=== PATIENT | male | born 1945 | race Caucasian/White ===

== ENCOUNTER → 2016-07-08 | Outpatient (CLI) | payer BC ==
[~2016-07-08] MED LIST: AMLO-114 PO; ASPCH81X PO; ATEN50TA8 PO; ATOR10TA82 PO; BUPR300T43 PO; EFF75 PO; GABA1CAP PO; HYDR25TA4 PO; INSPMPNVLG; LORA-741 PO; LOSA100T65 PO; MCRK/10 PO; MULT-845 PO; OMEG10007 PO; SILO8CAP PO; VENL150C56 PO; ZOLP10TA PO
== END | disposition home or self-care (01) ==
LOC: C.LAB1850 09:19
PROVIDERS: ATTEND Nurse Practitioner Family
DX: E11.9 Type 2 diabetes mellitus without complications (principal)

== ENCOUNTER → 2016-09-19 | Outpatient (CLI) | payer BC ==
[~2016-09-19] MED LIST changes: -ATOR10TA82 PO; +ATOR10TA88 PO
[2016-09-19 08:24] LABS: BLOOD UREA NITROGEN 15 mg/dl (7-18); BUN/CREATININE RATIO 15.3 (10-20); CALCIUM 9.4 mg/dl (8.5-10.1); CARBON DIOXIDE 29 mmol/L (21-32); CHLORIDE 104 mmol/L (98-107); CHOLESTEROL 137 mg/dl (0-200); GLUCOSE 196 mg/dl (70-99); POTASSIUM 3.7 mmol/L (3.5-5.1); SODIUM 142 mmol/L (136-145); TRIGLYCERIDES 259 mg/dl (0-150); VERY LOW DENSITY LIPOPROT CALC 52 mg/dl
[2016-09-19 08:35] LABS: CHOLESTEROL/HDL RATIO 3.3; HDL CHOLESTEROL 42 mg/dl; LDL CHOLESTEROL CALCULATED 43 mg/dl; THYROID STIMULATING HORMONE 0.662 uIu/ml (0.300-4.500)
[2016-09-19 08:57] LABS: ESTIMATED AVERAGE GLUCOSE 171 mg/dl; HA1C FLAG Normal (Normal)
== END | disposition home or self-care (01) ==
LOC: C.LABFOXMH 07:42
PROVIDERS: ATTEND Internal Medicine
DX: E11.9 Type 2 diabetes mellitus without complications (principal); E03.9 Hypothyroidism, unspecified

== ENCOUNTER → 2016-09-23 | Outpatient (CLI) | payer BC ==
--- NOTE | 2016-09-23 14:17 | DIAGNOSTIC IMAGING REPORT ---
CERVICAL SPINE 8 VIEWS HISTORY: Neuropathy LEFT ARM NUMBNESS COMPARISON: None. FINDINGS: The cervical spine is visualized from C1 through the superior endplate of T1. There is no fracture. No subluxation with the patient in flexion or extension. Moderate degenerative intervertebral this changes the lower lumbar region. Prevertebral soft tissues are unremarkable. C1-C2 complex is intact. Disc spaces are preserved. IMPRESSION: Mild to moderate degenerative disc change of the mid to lower cervical region. No subluxation with the patient in flexion or extension Electronically signed by: Refugio Banks M.D. 09/23/2016 2:15 PM Dictated Date/Time: 09/23/2016 2:09 PM
== END | disposition home or self-care (01) ==
LOC: C.RAD 13:10
PROVIDERS: ATTEND Nurse Practitioner Family
DX: R20.0 Anesthesia of skin (principal); M50.30 Other cervical disc degeneration, unspecified cervical region

== ENCOUNTER → 2017-01-28 | Outpatient (CLI) | payer BC ==
[2017-01-28 10:00] LABS: BLOOD UREA NITROGEN 16 mg/dl (7-18); CALCIUM 8.8 mg/dl (8.5-10.1); CARBON DIOXIDE 32 mmol/L (21-32); CHLORIDE 106 mmol/L (98-107); CHOLESTEROL 173 mg/dl (0-200); GLUCOSE 106 mg/dl (70-99); POTASSIUM 3.5 mmol/L (3.5-5.1); SODIUM 143 mmol/L (136-145); TRIGLYCERIDES 284 mg/dl (0-150); VERY LOW DENSITY LIPOPROT CALC 57 mg/dl
[2017-01-28 10:03] LABS: CHOLESTEROL/HDL RATIO 4.2; HDL CHOLESTEROL 41 mg/dl; LDL CHOLESTEROL CALCULATED 75 mg/dl
[2017-01-28 10:09] LABS: ESTIMATED AVERAGE GLUCOSE 163 mg/dl; HA1C FLAG Normal (Normal)
== END | disposition home or self-care (01) ==
LOC: C.LABFOXMH 08:50
PROVIDERS: ATTEND Internal Medicine
DX: E11.8 Type 2 diabetes mellitus with unspecified complications (principal)

== ENCOUNTER → 2017-04-17 | Outpatient (CLI) | payer BC | LOC: C.LABFOXMH 12:08 | PROVIDERS: ATTEND Nurse Practitioner Family | DX: R60.9 Edema, unspecified (principal) ==

== ENCOUNTER → 2017-04-18 | Outpatient (CLI) | payer BC ==
[2017-04-20 12:17] LABS: BLOOD UREA NITROGEN 15 mg/dl (7-18); BUN/CREATININE RATIO 12.9 (10-20); CALCIUM 8.9 mg/dl (8.5-10.1); CARBON DIOXIDE 28 mmol/L (21-32); CHLORIDE 107 mmol/L (98-107); CREATININE 1.15 mg/dl (0.60-1.40); GLUCOSE 126 mg/dl (70-99); POTASSIUM 3.8 mmol/L (3.5-5.1); SODIUM 142 mmol/L (136-145)
== END ==
LOC: C.LAB 10:27
PROVIDERS: ATTEND Nurse Practitioner Family
DX: R60.9 Edema, unspecified (principal)

== ENCOUNTER → 2017-05-13 | Outpatient (CLI) | payer BC ==
[~2017-05-13] MED LIST changes: +ATOR10TA82 PO; -ATOR10TA88 PO
[2017-05-13 17:09] LABS: THYROID STIMULATING HORMONE 0.958 uIu/ml (0.300-4.500)
[2017-05-14 06:50] LABS: ESTIMATED AVERAGE GLUCOSE 146 mg/dl; HA1C FLAG Normal (Normal)
== END | disposition home or self-care (01) ==
LOC: C.LAB 15:29
PROVIDERS: ATTEND Nurse Practitioner Family
DX: E03.9 Hypothyroidism, unspecified (principal); E11.9 Type 2 diabetes mellitus without complications

== ENCOUNTER → 2017-06-05 | Outpatient (CLI) | payer BC ==
[2017-06-05 08:26] LABS: ALT/SGPT 33 U/L (12-78); BLOOD UREA NITROGEN 22 mg/dl (7-18); BUN/CREATININE RATIO 21.7 (10-20); CALCIUM 8.7 mg/dl (8.5-10.1); CARBON DIOXIDE 27 mmol/L (21-32); CHLORIDE 107 mmol/L (98-107); CHOLESTEROL 147 mg/dl (0-200); CREATININE 1.03 mg/dl (0.60-1.40); GLUCOSE 133 mg/dl (70-99); SODIUM 143 mmol/L (136-145)
[2017-06-05 08:32] LABS: ALKALINE PHOSPHATASE 70 U/L (45-117); AST/SGOT 13 U/L (15-37); CHOLESTEROL/HDL RATIO 2.6; HDL CHOLESTEROL 56 mg/dl; LDL CHOLESTEROL CALCULATED 74 mg/dl; TRIGLYCERIDES 84 mg/dl (0-150); VERY LOW DENSITY LIPOPROT CALC 17 mg/dl
[2017-06-05 09:31] LABS: ESTIMATED AVERAGE GLUCOSE 154 mg/dl; HA1C FLAG Normal (Normal)
== END | disposition home or self-care (01) ==
LOC: C.LABFOXMH 08:04
PROVIDERS: ATTEND Internal Medicine Hospice and Palliative Medicine
DX: E11.9 Type 2 diabetes mellitus without complications (principal); E78.00 Pure hypercholesterolemia, unspecified

== ENCOUNTER → 2017-10-08 | Outpatient (CLI) | payer BC ==
[~2017-10-08] MED LIST changes: +GABA100C13 PO; -GABA1CAP PO
[2017-10-08 09:38] LABS: ALBUMIN 3.3 gm/dl (3.4-5.0); ALT/SGPT 36 U/L (12-78); BLOOD UREA NITROGEN 13 mg/dl (7-18); CALCIUM 8.8 mg/dl (8.5-10.1); CARBON DIOXIDE 28 mmol/L (21-32); CHOLESTEROL 166 mg/dl (0-200); CREATININE 0.99 mg/dl (0.60-1.40); GLUCOSE 109 mg/dl (70-99); POTASSIUM 3.5 mmol/L (3.5-5.1); SODIUM 140 mmol/L (136-145)
[2017-10-08 09:41] LABS: ALKALINE PHOSPHATASE 73 U/L (45-117); AST/SGOT 25 U/L (15-37); LDL CHOLESTEROL CALCULATED 73 mg/dl; TOTAL PROTEIN 6.7 gm/dl (6.4-8.2)
[2017-10-08 09:56] LABS: HEMOGLOBIN A1C 6.7 % (4.5-5.6)
== END | disposition home or self-care (01) ==
LOC: C.LABFOXMH 08:07
PROVIDERS: ATTEND Internal Medicine
DX: E11.9 Type 2 diabetes mellitus without complications (principal)

== ENCOUNTER → 2018-02-16 | Outpatient (CLI) | payer BC ==
[~2018-02-16] MED LIST changes: -AMLO-114 PO; +AMLO10TA3 PO; +GABA-1693 PO; -GABA100C13 PO
[2018-02-16 10:15] LABS: BLOOD UREA NITROGEN 16 mg/dl (7-18); CALCIUM 8.8 mg/dl (8.5-10.1); CARBON DIOXIDE 32 mmol/L (21-32); CHOLESTEROL 118 mg/dl (0-200); CREATININE 1.12 mg/dl (0.60-1.40); GLUCOSE 88 mg/dl (70-99); LDL CHOLESTEROL CALCULATED 46 mg/dl; POTASSIUM 3.5 mmol/L (3.5-5.1); SODIUM 142 mmol/L (136-145)
[2018-02-16 10:37] LABS: HEMOGLOBIN A1C 6.6 % (4.5-5.6)
== END | disposition home or self-care (01) ==
LOC: C.LABFOXMH 09:01
PROVIDERS: ATTEND Internal Medicine
DX: E11.9 Type 2 diabetes mellitus without complications (principal); E78.5 Hyperlipidemia, unspecified

== ENCOUNTER 2025-06-27 21:20 | Inpatient (IN) ==
[2025-06-27 22:57] LABS: Hematocrit (blood only) 48.5 % (42.0-52.0); Hemoglobin 16.0 g/dL (14.0-18.0); Immature Granulocytes # (auto) 0.04 K/uL (0.01-0.20); Immature Granulocytes % (auto) 0.4 %; Mean Corpuscular Hemoglobin 29.5 pg (25.0-34.0); Mean Corpuscular Volume 89.3 fL (80.0-100.0); Platelet Count 241 K/uL (130-400); RDW Standard Deviation 42.4 fL (36.4-46.3); Red Blood Count 5.43 M/uL (4.70-6.10); White Blood Count 9.67 K/ul (4.8-10.8)
[2025-06-27 23:04] LABS: Alanine Aminotransferase 29.0 U/L (7-52); Albumin Globulin Ratio 1.4 (0.9-2); Albumin Level 3.9 gm/dl (3.4-5.0); Alkaline Phosphatase 77.0 U/L (34-104); Anion Gap 10.0 (3-11); Bilirubin,Total 0.6 mg/dl (0.2-1.0); Blood Urea Nitrogen 21.0 mg/dl (6-23); Calcium 9.2 mg/dl (8.6-10.3); Carbon Dioxide 28.0 mmol/L (21-32); Chloride 101.0 mmol/L (98-107); Creatinine Clr Calc Pharmacy 65.7 ml/min; Globulin 2.8 gm/dl (2.5-4.0); Glucose 191.0 mg/dl (70-99(Fasting)); Potassium 4.2 mmol/L (3.5-5.1); Sodium 139.0 mmol/L (136-145); Total Protein 6.7 gm/dl (6.0-8.3)
[2025-06-27] MEDS: SODIUM CHLORIDE 0.9% 500 ML IV ONE (23:04)
[2025-06-27 23:25] LABS: Appearance Urine Clear (Clear); Bacteria Urine Automated None Seen (None Seen); Cast Urine Automated 0-2 /lpf (0-2); Epithelial Cell Urine Auto 0-2 /hpf (0-2); Glucose Urine UA Negative (Negative); RBC Urine Automated 0-2 /hpf (0-2); WBC Urine Automated 0-5 /hpf (0-5)
--- NOTE | 2025-06-28 00:36 | CT Scan Report ---
EXAM: CT head/brain wo con CLINICAL HISTORY: altered ms TECHNIQUE: Multiple axial images are obtained from the skull base to the vertex without contrast. CT scan was performed according to ALARA (as low as reasonably achievable). COMPARISON: 13:23:41 CASH APPLICATIONS REPRESENTATIVE. FINDINGS: There is cerebral atrophy. No evidence of space occupying lesion, hemorrhage, edema, mass effect, midline shift, extra axial collection, or hydrocephalus is noted. Basal cisterns are symmetric and normal in size and configuration. There are scattered periventricular hypodensities as can be seen with chronic microvascular ischemic changes. The schofield-white matter differentiation is preserved. Visualized paranasal sinuses and mastoid air cells are well aerated. Orbital contents are within normal limits. Bony structures are intact. IMPRESSION: 1. No evidence of acute intracranial abnormality is demonstrated. 2. Chronic microvascular ischemic changes.-stable. 3. Cerebral atrophy.-stable. Electronically signed by Ash Case 06-28-2025 12:36 AM
--- NOTE | 2025-06-28 01:40 | XRay Report ---
Exam(s): XR CXR 1 VIEW EXAM: XR Chest, 1 View CLINICAL HISTORY: Reason for exam: weakness. TECHNIQUE: Frontal view of the chest. COMPARISON: Prior chest x-ray from June 02, 2022. FINDINGS: Eventration of the right hemidiaphragm. Lungs: Moderate to heavy peribronchial thickening of the central bronchi. No consolidation. Low lung volumes limit evaluation of the lung bases. Pleural space: Unremarkable. No pneumothorax. Heart: Unremarkable. No cardiomegaly. Mediastinum: Unremarkable. Normal mediastinal contour. Bones/joints: Unremarkable. No acute fracture. IMPRESSION: Bronchitis, which may be of infectious or inflammatory etiologies. No consolidation or pleural effusion. Electronically signed by: Tessa Gannon MD 06/28/25 01:39 AM
[2025-06-28] MEDS: SODIUM CHLORIDE 0.9% 500 ML IV ONE (02:12)
--- NOTE | 2025-06-28 02:30 | History & Physical Report ---
Date of Service June 28, 2025 Assessment & Plan (1) Acute metabolic encephalopathy: (2) Dehydration, moderate: (3) Urinary incontinence: (4) Sacral neurostimulator in situ: Plan The patient is an 80-year-old male with past medical history including diabetic retinopathy, diabetes type 2, hypothyroidism, hypoglycemia unawareness, overactive bladder, urinary incontinence, diabetic peripheral neuropathy, GERD, hypothyroidism, presence of insulin pump, sleep apnea, hypertension, and history of TIA. He was brought to the emergency department by EMS from [facility] where he lives, due to noticing dizziness at 1800 hrs. this evening, and slight confusion. She reports he had a decreased appetite over the past few weeks. He does walk around with a walker. He has a sacral neurostimulator due to overactive bladder, and his reports that he gets no sleep because he has to urinate every 15 minutes. He is reluctant to drink fluids, because he has to urinate so frequently. And presents as moderately dehydrated with associated encephalopathy. #Acute metabolic encephalopathy/moderate dehydration/urinary incontinence/presence of sacral neurostimulator- No suggestion of active infection CT scan of head showed chronic small vessel disease and age-appropriate cerebral atrophy. Chest x-ray is without acute findings. Patient does not drink because he does not want to have to urinate more frequently than every 15 minutes as he does now. Patient is agreeable, after discussion, and agrees, that he should have a Pedro catheter placed for now. The catheter will allow us to more aggressively rehydrate him. He did receive normal saline 500 mL boluses x [address] on LR at 125 mL/h x 2 L His reports that he does appear somewhat improved after the 1 L total fluid that he received from the ED. He has followed with urology, most recently being seen on 05/23/2025. He has a history of TURP in 2020. Patient does have mild hypoxia, with a probable element of obesity hypoventilation syndrome. But he also has decreased inspiratory excursion due to fatigue/dehydration. #Hypertension- Showing some element of orthostasis. Overnight hold losartan, eplerenone, amlodipine Continue atenolol, being aware of patient's hypoglycemia unawareness. #Diabetes mellitus- Hold his insulin pump Typically uses 150 units of short acting insulin He has not been eating much recently in part because he cannot swallow very much because of mouth and esophagus being dry. Placed on Lantus glargine 20U SQ twice daily started in the a.m., and sliding scale insulin Pharmacy glycemic consult placed #Psychiatric- Continue bupropion, duloxetine, gabapentin #Hypothyroidism- Continue levothyroxine #Deconditioning- Patient typically walks with walker. His is his primary operations mgr Will likely need PT/OT consult when strong enough and prior to discharge He and his live at [facility] History of Present Illness Primary Care Provider: [facility] The patient is an 80-year-old male with past medical history including diabetic retinopathy, diabetes type 2, hypothyroidism, hypoglycemia unawareness, overactive bladder, urinary incontinence, diabetic peripheral neuropathy, GERD, hypothyroidism, presence of insulin pump, sleep apnea, hypertension, and history of TIA. He was brought to the emergency department by EMS from [facility] where he lives, due to noticing dizziness at 1800 hrs. this evening, and slight confusion. She reports he had a decreased appetite over the past few weeks. He does walk around with a walker. He has a sacral neurostimulator due to overactive bladder, and his reports that he gets no sleep because he has to urinate every 15 minutes. He is reluctant to drink fluids, because he has to urinate so frequently. And presents as moderately dehydrated with associated encephalopathy. Allergies Allergy/AdvReac Type Severity Reaction Status Date / Time oxycodone Allergy Intermediate Hallucinati Verified 05/23/25 08:16 ng lisinopril AdvReac Mild Cough Verified 05/23/25 08:16 Home Medications Medication Instructions Recorded Confirmed Type aspirin 81 mg tablet,delayed 81 mg PO QAM 02/07/19 05/23/25 History release atenolol 50 mg tablet 50 mg PO QAM 02/07/19 05/23/25 History losartan 100 mg tablet 100 mg PO QAM #14 tabs 02/07/19 05/23/25 History diclofenac sodium 1 % topical gel 2 gm topical QID PRN Pain 11/18/19 05/23/25 History (Voltaren) multivitamin 1 cap PO QAM 02/08/20 05/23/25 History rosuvastatin 20 mg tablet 20 mg PO QAM 07/19/20 05/23/25 History blood sugar diagnostic (Contour 11/22/20 05/23/25 History Next Test Strips) duloxetine 30 mg capsule,delayed 30 mg PO HS 05/21/21 05/23/25 History release duloxetine 60 mg capsule,delayed 60 mg PO HS 05/21/21 05/23/25 History release sprinkle eplerenone 25 mg tablet 25 mg PO QAM 08/14/22 05/23/25 History levothyroxine 88 mcg tablet 88 mcg PO QAM 08/19/22 05/23/25 History acetaminophen 500 mg capsule 1,000 mg PO QID PRN Pain 06/22/23 05/23/25 History bupropion HCl 300 mg 24 hr tablet, 300 mg PO QAM 06/22/23 05/23/25 History extended release triamcinolone acetonide 0.1 % 1 applic topical DAILY PRN Skin 06/22/23 05/23/25 History lotion Irritation cholecalciferol (vitamin D3) 50 50 mcg PO DAILY 11/16/23 05/23/25 History mcg (2,000 unit) capsule gabapentin 400 mg capsule 200 mg PO HS 05/31/24 05/23/25 History omega-3 fatty acids-fish oil 340 1 cap PO DAILY 05/31/24 05/23/25 History mg-1,000 mg capsule polyethylene glycol 3350 17 gram 17 g PO DAILY PRN Constipation 05/31/24 05/23/25 History oral powder packet (Miralax) insulin aspart U-100 100 unit/mL 150 unit (1.5 mL) continuous 10/19/24 05/23/25 Rx subcutaneous solution (Novolog subcutaneous infusion DAILY #140 mL U-100 Insulin aspart) pen needle, diabetic 32 gauge x #100 ea 02/15/25 05/23/25 Rx 5/32" semaglutide 0.25 mg or 0.5 mg (2 0.5 mg (0.736 mL) subcut Q7D #3 mL 02/20/25 05/23/25 Rx mg/3 mL) subcutaneous pen injector amlodipine 2.5 mg tablet 2.5 mg PO DAILY 02/27/25 05/23/25 History blood-glucose sensor (Dexcom G7 #3 ea 05/19/25 05/23/25 Rx Sensor device) blood-glucose,service counter cashier,cont #1 ea 05/19/25 05/23/25 Rx (Dexcom G7 Pediatric Nephrologist) Past Med/Surg History Problem List (Updated 06/28/25 @ 03:24 by Elroy Maravilla MD) Acute metabolic encephalopathy Dehydration, moderate Diabetic retinopathy associated with controlled type 2 diabetes mellitus Hypothyroidism Fatigue Hypoglycemia unawareness associated with type 2 diabetes mellitus Constipation Abnormal abdominal CT scan Diarrhea Overactive bladder Adult situational stress disorder Degenerative joint disease of left hip Urinary incontinence History of colon polyps Hematuria Encounter for pre-operative examination Controlled type 2 diabetes mellitus with neurologic complication, with long-term current use of insulin (Chronic) Diabetic autonomic neuropathy Diabetic peripheral neuropathy Dyslipidemia Encounter for prostate cancer screening Enlarged prostate with lower urinary tract symptoms (LUTS) Esophageal reflux Hearing loss Bilateral hearing aids Hypothyroidism Impaired sensation Insulin pump titration Irritable bowel syndrome Joint pain, elbow Male erectile disorder of organic origin Obesity (BMI 35.0-39.9 without comorbidity) Pain in joint of left shoulder Peripheral neuropathy Skin abscess Sleep apnea Tinnitus Type 2 diabetes mellitus with hypoglycemia unawareness Dizziness Diplopia Hypertension Diabetes Medical History (Updated 06/28/25 @ 03:24 by Elroy Maravilla MD) Hx of colonic polyps Hearing loss bilat. hearing aids Diarrhea finishing flagyl tx 06/22/23, tested 3x c.diff and tests were negative resolved Difficult intubation reported by pt at previous PAT appt, no additional records/details available Sacral neurostimulator in situ trial placed 02/04/23; permanent implant placed 04/2023; advised to bring remote dos Hx of melanoma of skin under right earlobe History of COVID-19 03/06/22, test at [facility] due to tracing, not hosp; was given paxlo vid>resolved. Peripheral neuropathy Diabetes mellitus, type 2 insulin pump History of anesthesia reaction wakes up during anesthesia "only happened once" Urinary stress incontinence, male CKD (chronic kidney disease) stage 3, GFR 30-59 ml/min pt unsure about this? Hypertension Hyperlipidemia TIA (transient ischemic attack) 2016 > some reading difficulty IBS (irritable bowel syndrome) Combination of diarrhea and constipation Insulin pump in place Has continuous glucose monitor in place on lower abdomen as well Spinal stenosis Hypothyroid Sleep apnea CPAP BPH without urinary obstruction hx TURP Depression Surgical History Hx of eye surgery "holes in retinas repaired, has troubles w/reading" Hx of melanoma excision below rt earlobe Hx of transurethral resection of prostate History of repair of rotator cuff rt/lt History of tonsillectomy and adenoidectomy History of colonoscopy (2023) History of cholecystectomy History of knee replacement rt/lt Family History Father Myocardial infarction Hypertension Grandmother (Maternal) Cancer Mother Hypertension Family/Other Family history of diabetes mellitus Other Diabetes History of nephrolithiasis No family history of adverse response to anesthesia Social History Smoking Status: Never smoker Tobacco Type: Cigarettes Second Hand Exposure: No; Do You Dip or Chew Tobacco: No (quit 13 years ago); Hx Alcohol Use: No Hx Substance Use: Yes Last Used Substance Other:: tried medical marijuana years ago, once Substance Use Type Other:: "tried a couple of years ago" Preferred Language: Yakut Communication Ability: Effective Rn Heart Required: No Beliefs That Will Affect Care: None Current Living Situation: Spouse Current Living Situation Comment: lives in [facility] Feels Safe at Home: Yes Assistive Devices: Cane, CPAP, Denture - Upper, Glasses and Hearing Aid - Bilateral Review of Systems Review of Systems: The patient denies chest pain, palpitations, shortness of breath, dyspnea on exertion, cough, lower extremity swelling, sore throat, fevers, chills, sweats, nausea, vomiting, diarrhea , constipation, abdominal pain, pelvic pain, blood in urine or stool, dysuria, urinary frequency or urgency, loss of consciousness, rash, abnormal bruising or bleeding, focal weakness, numbness or tingling in arms or legs, neck pain, or night sweats. The review of systems is otherwise negative other than for that already noted above, and at least 10 systems have been reviewed. Physical Exam Physical Exam: The patient is awake, alert and oriented 3, well developed and well nourished, normocephalic and atraumatic, lying in bed and in no acute distress. HEENT--PERRL, EOMI, mucous membranes and oropharynx moderately dry. Neck--supple. No JVD. No bruits. Thyroid normal, trachea midline, no adenopathy. Heart--normal S1 and S2. No murmurs, rubs or gallops. Lungs--clear bilaterally, no respiratory distress, no accessory muscle use. Abdomen--normal bowel sounds and soft. Nontender. Nondistended. Obese Extremities--1+ bilateral pretibial pitting edema. Dermatologic--skin is dry Neurologic--cranial nerves II through XII grossly intact. Rheumatologic--limited exam Psychiatric--normal affect. Results & Data Results & Data Vital Signs (Past 12 Hours) Vital Signs Temp Pulse Pulse Resp BP BP Pulse Ox 06/28/25 01:49 112 H 06/28/25 00:38 113 H 18 134/83 90 06/27/25 23:11 112 H 18 121/77 93 06/27/25 21:48 36.5 C 111 H 18 156/88 H 93 06/27/25 21:46 114 H 06/27/25 21:41 92 O2 Del Method 06/28/25 01:49 06/28/25 00:38 Room Air 06/27/25 23:11 Room Air 06/27/25 21:48 Room Air 06/27/25 21:46 06/27/25 21:41 Room Air Laboratory Results Laboratory Results WBC 9.67 K/ul (4.8-10.8) 06/27/25 21: RBC 5.43 M/uL (4.70-6.10) 06/27/25 21: Hgb 16.0 g/dL (14.0-18.0) 06/27/25 21: Hct 48.5 % (42.0-52.0) 06/27/25 21: MCV 89.3 fL (80.0-100.0) 06/27/25: MCH 29.5 pg (25.0-34.0) 06/27/25 21: MCHC 33.0 g/dL (32.0-36.0) 06/27/25 21: RDW Std Deviation 42.4 fL (36.4-46.3) 06/27/25: RDW Coeff of Lexie 13.0 % (11.5-14.5) 06/27/25 21: Plt Count 241 K/uL (130-400) 06/27/25 21: MPV 10.5 fL (9.4-12.4) 06/27/25: Immature Gran % (Auto) 0.4 % 06/27/25: Neut % (Auto) 86.0 % 06/27/25 21: Lymph % (Auto) 3.9 % 06/27/25 21: Wharton % (Auto) 7.4 % 06/27/25 21: Eos % (Auto) 1.8 % 06/27/25 21: Baso % (Auto) 0.5 % 06/27/25 21: Neut # (Auto) 8.31 K/uL (1.40-6.50) H 06/27/25 21: Lymph # (Auto) 0.38 K/uL (1.20-3.40) L 06/27/25 21: Wharton # (Auto) 0.72 K/uL (0.11-0.59) H 06/27/25 21: Eos # (Auto) 0.17 K/uL (0.00-0.50) 06/27/25 21: Baso # (Auto) 0.05 K/uL (0.00-0.20) 06/27/25 21: Immature Gran # (Auto) 0.04 K/uL (0.01-0.20) 06/27/25 21: Sodium 139 mmol/L (136-145) 06/27/25 21: Potassium 4.2 mmol/L (3.5-5.1) 06/27/25 21: Chloride 101 mmol/L (98-107) 06/27/25 21: Carbon Dioxide 28 mmol/L (21-32) 06/27/25 21: Anion Gap 10 (3-11) 06/27/25 21: BUN 21 mg/dl (6-23) 06/27/25 21: Creatinine 1.19 mg/dl (0.6-1.4) 06/27/25 21: Est Cr Clr Drug Dosing 65.7 ml/min 06/27/25 21: eGFR 61.75 06/27/25 21: BUN/Creatinine Ratio 17.6 (10-20) 06/27/25 21: Glucose 191 mg/dl (70-99(Fasting)) H 06/27/25 21: Calcium 9.2 mg/dl (8.6-10.3) 06/27/25 21: Total Bilirubin 0.6 mg/dl (0.2-1.0) 06/27/25 21: AST 25 U/L (13-39) 06/27/25 21: ALT 29 U/L (7-52) 06/27/25 21: Alkaline Phosphatase 77 U/L (34-104) 06/27/25 21:23 Troponin I High Sens 9.7 pg/ml (0-20) 06/28/25 00:28 Total Protein 6.7 gm/dl (6.0-8.3) 06/27/25 21: Albumin 3.9 gm/dl (3.4-5.0) 06/27/25 21: Globulin 2.8 gm/dl (2.5-4.0) 06/27/25 21: Albumin/Globulin Ratio 1.4 (0.9-2) 06/27/25 21:23 Urine Color Yellow 06/27/25 22:42 Urine Appearance Clear (Clear) 06/27/25 22:42 Urine pH 8.0 (4.5-7.5) H 06/27/25 22:42 Ur Specific [place] 1.022 (1.000-1.030) 06/27/25 22:42 Urine Protein 2+ (Negative) H 06/27/25 22:42 Urine Glucose (UA) Negative (Negative) 06/27/25 22:42 Urine Ketones Trace (Negative) H 06/27/25 22:42 Urine Blood Negative (Negative) 06/27/25 22:42 Urine Nitrite Negative (Negative) 06/27/25 22:42 Urine Bilirubin Negative (Negative) 06/27/25 22:42 Urine Urobilinogen Negative (Negative) 06/27/25 22:42 Ur Leukocyte Esterase Negative (Negative) 06/27/25 22:42 Urine WBC (Auto) 0-5 /hpf (0-5) 06/27/25 22:42 Urine RBC (Auto) 0-2 /hpf (0-2) 06/27/25 22:42 U Hyaline Cast (Auto) 0-2 /lpf (0-2) 06/27/25 22:42 U Epithel Cells (Auto) 0-2 /hpf (0-2) 06/27/25 22:42 Urine Bacteria (Auto) None Seen (None Seen) 06/27/25 22:42 Urine Comment 06/27/25 22:42 Impressions Chest X-Ray 06/27/25 22:54 Exam(s): XR CXR 1 VIEW EXAM: XR Chest, 1 View CLINICAL HISTORY: Reason for exam: weakness. TECHNIQUE: Frontal view of the chest. COMPARISON: Prior chest x-ray from June 02, 2022. FINDINGS: Eventration of the right hemidiaphragm. Lungs: Moderate to heavy peribronchial thickening of the central bronchi. No consolidation. Low lung volumes limit evaluation of the lung bases. Pleural space: Unremarkable. No pneumothorax. Heart: Unremarkable. No cardiomegaly. Mediastinum: Unremarkable. Normal mediastinal contour. Bones/joints: Unremarkable. No acute fracture. IMPRESSION: Bronchitis, which may be of infectious or inflammatory etiologies. No consolidation or pleural effusion. Electronically signed by: Tessa Gannon MD 06/28/25 01:[address] 06/27/25 23:39 EXAM: CT head/brain wo con CLINICAL HISTORY: altered ms TECHNIQUE: Multiple axial images are obtained from the skull base to the vertex without contrast. CT scan was performed according to ALARA (as low as reasonably achievable). COMPARISON: 13:23:41 SOCIAL SERVICES COORDINATOR. FINDINGS: There is cerebral atrophy. No evidence of space occupying lesion, hemorrhage, edema, mass effect, midline shift, extra axial collection, or hydrocephalus is noted. Basal cisterns are symmetric and normal in size and configuration. There are scattered periventricular hypodensities as can be seen with chronic microvascular ischemic changes. The schofield-white matter differentiation is preserved. Visualized paranasal sinuses and mastoid air cells are well aerated. Orbital contents are within normal limits. Bony structures are intact. IMPRESSION: 1. No evidence of acute intracranial abnormality is demonstrated. 2. Chronic microvascular ischemic changes.-stable. 3. Cerebral atrophy.-stable. Electronically signed by Ash Case 06-28-2025 12:36 AM Code Status & VTE Plan Code Status Full code VTE Prophylaxis Plan VTE Prophylaxis will be ordered: Yes PG Care Time/CCT Total # of Minutes Spent Total Time Spent with Patient: Total time spent is greater than 50% in coordination of care (as documented) at patient's floor/unit and/or counseling patient: Coding Level of Care Code 32058 INT INP/OBS CARE 3/75MIN Diagnoses Acute metabolic encephalopathy G93.41 Dehydration, moderate E86.0 Urinary incontinence R32 Sacral neurostimulator in situ Z96.82
[2025-06-28] MEDS: LACTATED RINGER'S 1,000 ML IV SCH (03:06)
[2025-06-28] MEDS ORDERED: GLUCOSE 40% GEL 15 GM TUBE PO PRN (03:32)
[2025-06-28] MEDS ORDERED: DEXTROSE 50% 50 ML SYRINGE IV PRN (03:32)
[2025-06-28] MEDS ORDERED: GLUCOSE 10 TAB/TUBE PO PRN (03:32)
[2025-06-28] MEDS ORDERED: ONDANSETRON INJ 2 MG/ML 2 ML VIAL IV PRN (03:32)
[2025-06-28] MEDS ORDERED: PHARMACY GLYCEMIC MGMT CONSULT PRN (03:32)
[2025-06-28] MEDS ORDERED: GLUCAGON FOR INJ 1 MG VIAL SQ PRN (03:32)
[2025-06-28] MEDS ORDERED: CARBOHYDRATES FOR HYPOGLYCEMIA PO PRN (03:32)
[2025-06-28] MEDS: ACETAMINOPHEN 325 MG TAB PO PRN (04:44)
[2025-06-28] MEDS: INSULIN ASPART PER UNIT CHARGE SC ONE (04:49)
[2025-06-28] MEDS: LANTUS PER UNIT CHARGE SC ONE (04:56)
[2025-06-28 08:01] LABS: Hemoglobin A1C 7.0 % (4.5-5.6)
--- NOTE | 2025-06-28 08:15 | Emergency Department Note ---
Impression & Plan Dehydration, Acute alteration in mental status, Ambulatory dysfunction admit to the [facility] ED Provider Note NAME: NAVJOT LAGUNA AGE: 80 SEX: Male INFORMANT: Patient ED PROVIDER(S): Isamar Gillis DO CHIEF COMPLAINT: Confusion, dizziness and decreased appetite PLAN: Disposition: admit to the [facility] MEDICAL DECISION MAKING: This is an 80-year-old male patient from [facility] with a history of type 2 diabetes, hyperlipidemia,and previous TIA who presents to the emergency department with his with significant increased confusion to the point that he appeared to be hallucinating and talking to people that were not there tonight. His also states that he was unable to ambulate on his own which is not typical for him. She describes extreme weakness since 6 PM this evening. also describes an overall decline over the past 4 to 6 weeks of decreased appetite and generalized weakness for which she has been to 5 doctors as she describes it with no true answers as to the cause of the symptoms. The patient describes urinary frequency but no true diagnosis of UTI. On physical exam today, the patient appears significantly dehydrated with dry mucous membranes, tachycardia and poor skin turgor. Laboratory studies reveal no leukocytosis or anemia. Glucose was slightly elevated. Troponin was normal. Urinalysis revealed trace ketones and 2+ protein. However there were no signs of infection. Chest x-ray was unremarkable. The patient was bolused with IV normal saline solution. This did bring his heart rate down below 100. Patient has CT scan of the brain which was unremarkable. The patient remained quite weak and was unable to get up and ambulate on his own. He also remained confused and seemed to be hallucinating as he was talking to the TV in his room which was turned off. The case was discussed with the [facility] and they will evaluate for further inpatient care and evaluation. Care/management discussed with: The patient's is at the bedside and the [facility] Triage Nursing notes: reviewed and agree with them. Vital Signs: reviewed and remarkable for tachycardia Additional History obtained from: Patient's who is at the bedside Chronic Medical/Social Conditions affecting care: Diabetes, hyperlipidemia, the patient does admit to being sad and not having an appetite. Prior/ Outside/ External records reviewed: I did review outside records from endocrinology. Differential Diagnosis: UTI, dehydration, electrolyte abnormality, hyperglycemia, intracranial process Diagnostics, independently interpreted by me: Cardiac Monitoring: Sinus tachycardia at a rate of 107 Imaging studies: Portable chest x-ray: No acute pulmonary infiltrates or consolidation as per my independent interpretation CT scan of the brain: As per [facility] HPI: 80 year old Male arrives for evaluation of dizziness and confusion. He has significant increased confusion to the point that he appeared to be hallucinating and talking to people that were not there tonight. His also states that he was unable to ambulate on his own which is not typical for him. . PAST MEDICAL HISTORY: See Below, PAST SURGICAL HISTORY: See Below, SOCIAL HISTORY: See Below, HOME MEDICATIONS: See list ALLERGIES: See list VITALS: See Below PHYSICAL EXAMINATION: HEENT: Head - normocephalic and atraumatic. Pupils are equal, round, and reactive to light. Extraocular eye muscles are intact and sclera are anicteric. Nose -dry nasal mucosa without discharge. Mouth -dry buccal mucosa. Oropharynx is nonerythematous and there is no tonsillar exudate or edema noted. Neck: Supple; no JVD or cervical lymphadenopathy Heart: Tachycardic rate and regular rhythm. There is a normal S1 and S2 with no murmurs, clicks, or gallops appreciated. Lungs: Clear to auscultation bilaterally with no wheezes, rales, or rhonchi. Abdomen: Soft, completely nontender, nondistended, with good bowel sounds. There are no palpable pulsatile masses or hepatosplenomegaly. There is no guarding, rigidity, or rebound noted. Extremities: No evidence of cyanosis, clubbing, or edema. There are easily palpable peripheral pulses. Neuro:The patient is awake and alert, oriented to person and place. Muscle strength is 5/5 in all 4 extremities. The patient has equal adjunct faculty for medical terminology strength and equal pedal push and pull. There are no cerebellar signs. Skin: Extremely dry with poor turgor. There were no rashes. Emergency Department treatment: environmental monitoring technician, IV normal saline bolus Emergency department course: The patient was evaluated in room B-6. A complete history and physical was performed. IV lock was initiated and labs were drawn as above. Order was placed for continuous cardiac monitoring. The patient was in a sinus tachycardia at a rate of 107. Portable chest x-ray was performed. Patient went for CT scan of the brain. Patient was bolused with IV normal saline solution. Urine specimen was obtained. Patient was wanting to be discharged back to [facility] but continued to hallucinate and talk to people that were not in the room and talk to the TV and question why it had numbers all over it was actually turned off. I reviewed some of the results with the patient and explained my concerns to him and his . He was willing to stay. I discussed the case with the [facility] Hospitalist and they will evaluate the patient for further inpatient care. Past Med/Surg History Problem List (Updated 06/28/25 @ 08:47 by Isamar Gillis DO) Ambulatory dysfunction (Acute) Acute alteration in mental status (Acute) Dehydration (Acute) Acute metabolic encephalopathy Dehydration, moderate Diabetic retinopathy associated with controlled type 2 diabetes mellitus Hypothyroidism Fatigue Hypoglycemia unawareness associated with type 2 diabetes mellitus Constipation Abnormal abdominal CT scan Diarrhea Overactive bladder Adult situational stress disorder Degenerative joint disease of left hip Urinary incontinence History of colon polyps Hematuria Encounter for pre-operative examination Controlled type 2 diabetes mellitus with neurologic complication, with long-term current use of insulin (Chronic) Diabetic autonomic neuropathy Diabetic peripheral neuropathy Dyslipidemia Encounter for prostate cancer screening Enlarged prostate with lower urinary tract symptoms (LUTS) Esophageal reflux Hearing loss Bilateral hearing aids Hypothyroidism Impaired sensation Insulin pump titration Irritable bowel syndrome Joint pain, elbow Male erectile disorder of organic origin Obesity (BMI 35.0-39.9 without comorbidity) Pain in joint of left shoulder Peripheral neuropathy Skin abscess Sleep apnea Tinnitus Type 2 diabetes mellitus with hypoglycemia unawareness Dizziness Diplopia Hypertension Diabetes Medical History (Updated 06/28/25 @ 08:47 by Isamar Gillis DO) Hx of colonic polyps Hearing loss bilat. hearing aids Diarrhea finishing flagyl tx 06/22/23, tested 3x c.diff and tests were negative resolved Difficult intubation reported by pt at previous PAT appt, no additional records/details available Sacral neurostimulator in situ trial placed 02/04/23; permanent implant placed 04/2023; advised to bring remote dos Hx of melanoma of skin under right earlobe History of COVID-19 03/06/22, test at [facility] due to tracing, not hosp; was given paxlovid>resolved. Peripheral neuropathy Diabetes mellitus, type 2 insulin pump History of anesthesia reaction wakes up during anesthesia "only happened once" Urinary stress incontinence, male CKD (chronic kidney disease) stage 3, GFR 30-59 ml/min pt unsure about this? Hypertension Hyperlipidemia TIA (transient ischemic attack) 2016 > some reading difficulty IBS (irritable bowel syndrome) Combination of diarrhea and constipation Insulin pump in place Has continuous glucose monitor in place on lower abdomen as well Spinal stenosis Hypothyroid Sleep apnea CPAP BPH without urinary obstruction hx TURP Depression Surgical History Hx of eye surgery "holes in retinas repaired, has troubles w/reading" Hx of melanoma excision below rt earlobe Hx of transurethral resection of prostate History of repair of rotator cuff rt/lt History of tonsillectomy and adenoidectomy History of colonoscopy (2023) History of cholecystectomy History of knee replacement rt/lt Family History Father Myocardial infarction Hypertension Grandmother (Maternal) Cancer Mother Hypertension Family/Other Family history of diabetes mellitus Other Diabetes History of nephrolithiasis No family history of adverse response to anesthesia Social History Smoking Status: Never smoker Tobacco Type: Cigarettes Second Hand Exposure: No; Do You Dip or Chew Tobacco: No (quit 13 years ago); Hx Alcohol Use: No Hx Substance Use: Yes Last Used Substance Other:: tried medical marijuana years ago, once Substance Use Type Other:: "tried a couple of years ago" Preferred Language: Cymraes Communication Ability: Effective Patient Liaison Required: No Beliefs That Will Affect Care: None Current Living Situation: Spouse Current Living Situation Comment: lives in [facility] Feels Safe at Home: Yes Assistive Devices: Cane, CPAP, Denture - Upper, Glasses and Hearing Aid - Bilateral Allergies Allergies Allergy/AdvReac Type Severity Reaction Status Date / Time oxycodone Allergy Intermediate Hallucinati Verified 05/23/25 08:16 ng lisinopril AdvReac Mild Cough Verified 05/23/25 08:16 Home Meds Home Medications Medication Instructions Recorded Confirmed aspirin 81 mg tablet,delayed 81 mg PO QAM 02/07/19 05/23/25 release atenolol 50 mg tablet 50 mg PO QAM 02/07/19 05/23/25 losartan 100 mg tablet 100 mg PO QAM #14 tabs 02/07/19 05/23/25 diclofenac sodium 1 % topical gel 2 gm topical QID PRN Pain 11/18/19 05/23/25 (Voltaren) multivitamin 1 cap PO QAM 02/08/20 05/23/25 rosuvastatin 20 mg tablet 20 mg PO QAM 07/19/20 05/23/25 blood sugar diagnostic (Contour 11/22/20 05/23/25 Next Test Strips) duloxetine 30 mg capsule,delayed 30 mg PO HS 05/21/21 05/23/25 release duloxetine 60 mg capsule,delayed 60 mg PO HS 05/21/21 05/23/25 release sprinkle eplerenone 25 mg tablet 25 mg PO QAM 08/14/22 05/23/25 levothyroxine 88 mcg tablet 88 mcg PO QAM 08/19/22 05/23/25 acetaminophen 500 mg capsule 1,000 mg PO QID PRN Pain 06/22/23 05/23/25 bupropion HCl 300 mg 24 hr tablet, 300 mg PO QAM 06/22/23 05/23/25 extended release triamcinolone acetonide 0.1 % 1 applic topical DAILY PRN Skin 06/22/23 05/23/25 lotion Irritation cholecalciferol (vitamin D3) 50 50 mcg PO DAILY 11/16/23 05/23/25 mcg (2,000 unit) capsule gabapentin 400 mg capsule 200 mg PO HS 05/31/24 05/23/25 omega-3 fatty acids-fish oil 340 1 cap PO DAILY 05/31/24 05/23/25 mg-1,000 mg capsule polyethylene glycol 3350 17 gram 17 g PO DAILY PRN Constipation 05/31/24 05/23/25 oral powder packet (Miralax) amlodipine 2.5 mg tablet 2.5 mg PO DAILY 02/27/25 05/23/25 Previous Rx's Medication Instructions Recorded insulin aspart U-100 100 unit/mL 150 unit (1.5 mL) continuous 10/19/24 subcutaneous solution (Novolog subcutaneous infusion DAILY #140 mL U-100 Insulin aspart) pen needle, diabetic 32 gauge x #100 ea 02/15/25" semaglutide 0.25 mg or 0.5 mg (2 0.5 mg (0.736 mL) subcut Q7D #3 mL 02/20/25 mg/3 mL) subcutaneous pen injector blood-glucose sensor (Dexcom G7 #3 ea 05/19/25 Sensor device) blood-glucose,pilot submersible,cont #1 ea 05/19/25 (Dexcom G7 Panel Fitter) Results & Data (ED) Vital Signs Vital Signs - 24 hr 06/27/25 21:41 06/27/25 21:46 06/27/25 21:48 Temperature 36.5 C Temperature Source Oral Pulse Rate 114 H 111 H Pulse Rate [Apical] Pulse Rhythm Regular Pulse Rhythm [Apical] Pulse Strength Normal Pulse Strength [Apical] Respiratory Rate 18 Respiratory Effort / Characteristics Non-Labored Spontaneous Respiratory Depth Normal Respiratory Pattern Regular Blood Pressure 156/88 H Blood Pressure [Left Arm] Blood Pressure Mean 110 Blood Pressure Mean [Left Arm] Blood Pressure Position Lying Pulse Oximetry 92 93 Oxygen Delivery Method Room Air Room Air Sepsis Recent Fever Within 48 Hours No Sepsis New/Unexplained Change in Mental Status Yes Sepsis Action Taken by Nursing No Action Required 06/27/25 23:11 06/28/25 00:38 06/28/25 01:49 Temperature Temperature Source Pulse Rate 112 H Pulse Rate [Apical] 112 H 113 H Pulse Rhythm Pulse Rhythm [Apical] Regular Regular Pulse Strength Pulse Strength [Apical] Normal Normal Respiratory Rate 18 18 Respiratory Effort / Characteristics Non-Labored Spontaneous Non-Labored Respiratory Depth Normal Normal Respiratory Pattern Regular Regular Blood Pressure Blood Pressure [Left Arm] 121/77 134/83 Blood Pressure Mean Blood Pressure Mean [Left Arm] 91 100 Blood Pressure Position Pulse Oximetry 93 90 Oxygen Delivery Method Room Air Room Air Sepsis Recent Fever Within 48 Hours Sepsis New/Unexplained Change in Mental Status Sepsis Action Taken by Nursing 06/28/25 02:00 Temperature Temperature Source Pulse Rate Pulse Rate [Apical] 112 H Pulse Rhythm Pulse Rhythm [Apical] Regular Pulse Strength Pulse Strength [Apical] Normal Respiratory Rate 20 Respiratory Effort / Characteristics Non-Labored Spontaneous Respiratory Depth Normal Respiratory Pattern Regular Blood Pressure Blood Pressure [Left Arm] 169/90 H Blood Pressure Mean Blood Pressure Mean [Left Arm] 116 Blood Pressure Position Pulse Oximetry 92 Oxygen Delivery Method Room Air Sepsis Recent Fever Within 48 Hours Sepsis New/Unexplained Change in Mental Status Sepsis Action Taken by Nursing Laboratory Data 06/27/25 21:23 06/27/25 21:23 Lab Results 06/27/25 06/27/25 06/28/25 Range/Units 21:23 22:42 00:28 WBC 9.67 (4.8-10.8) K/ul RBC 5.43 (4.70-6.10) M/uL Hgb 16.0 (14.0-18.0) g/dL Hct 48.5 (42.0-52.0) % MCV 89.3 (80.0-100.0) fL MCH 29.5 (25.0-34.0) pg MCHC 33.0 (32.0-36.0) g/dL RDW Std Deviation 42.4 (36.4-46.3) fL RDW Coeff of Lexie 13.0 (11.5-14.5) % Plt Count 241 (130-400) K/uL MPV 10.5 (9.4-12.4) fL Immature Gran % (Auto) 0.4 % Neut % (Auto) 86.0 % Lymph % (Auto) 3.9 % Russell % (Auto) 7.4 % Eos % (Auto) 1.8 % Baso % (Auto) 0.5 % Neut # (Auto) 8.31 H (1.40-6.50) K/uL Lymph # (Auto) 0.38 L (1.20-3.40) K/uL Russell # (Auto) 0.72 H (0.11-0.59) K/uL Eos # (Auto) 0.17 (0.00-0.50) K/uL Baso # (Auto) 0.05 (0.00-0.20) K/uL Immature Gran # (Auto) 0.04 (0.01-0.20) K/uL Sodium 139 (136-145) mmol/L Potassium 4.2 (3.5-5.1) mmol/L Chloride 101 (98-107) mmol/L Carbon Dioxide 28 (21-32) mmol/L Anion Gap 10 (3-11) BUN 21 (6-23) mg/dl Creatinine 1.19 (0.6-1.4) mg/dl Est Cr Clr Drug Dosing 65.7 ml/min eGFR 61.75 BUN/Creatinine Ratio 17.6 (10-20) Glucose 191 H (70-99(Fasting)) mg/dl Calcium 9.2 (8.6-10.3) mg/dl Total Bilirubin 0.6 (0.2-1.0) mg/dl AST 25 (13-39) U/L ALT 29 (7-52) U/L Alkaline Phosphatase 77 (34-104) U/L Troponin I High Sens 9.7 (0-20) pg/ml Total Protein 6.7 (6.0-8.3) gm/dl Albumin 3.9 (3.4-5.0) gm/dl Globulin 2.8 (2.5-4.0) gm/dl Albumin/Globulin Ratio 1.4 (0.9-2) Urine Color Yellow Urine Appearance Clear (Clear) Urine pH 8.0 H (4.5-7.5) Ur Specific Homer 1.022 (1.000-1.030) Urine Protein 2+ H (Negative) Urine Glucose (UA) Negative (Negative) Urine Ketones Trace H (Negative) Urine Blood Negative (Negative) Urine Nitrite Negative (Negative) Urine Bilirubin Negative (Negative) Urine Urobilinogen Negative (Negative) Ur Leukocyte Esterase Negative (Negative) Urine WBC (Auto) 0-5 (0-5) /hpf Urine RBC (Auto) 0-2 (0-2) /hpf U Hyaline Cast (Auto) 0-2 (0-2) /lpf U Epithel Cells (Auto) 0-2 (0-2) /hpf Urine Bacteria (Auto) None Seen (None Seen) Urine Comment Administered Medications Acetaminophen (Acetaminophen 325 Mg Tab) 650 mg PO Q4H PRN PRN Reason: Pain or Fever Stop: 07/28/25 03:31 Last Admin: 06/28/25 04:44 Dose: 650 mg Documented By: NOLBETRO Lactated Ringer's (Lr) 1,000 mls @ 125 mls/hr IV .Q8H TYLER Stop: 06/28/25 18:19 Last Admin: 06/28/25 03:06 Dose: 125 mls/hr Documented By: abl Discontinued Medications Sodium Chloride (Nss) 500 mls @ 999 mls/hr IV .Q31M ONE Stop: 06/27/25 23:26 Last Infusion: 06/28/25 00:32 Dose: Infused Documented By: abl Admin: 06/27/25 23:04 Dose: 999 mls/hr Documented By: abl Sodium Chloride (Nss) 500 mls @ 999 mls/hr IV .Q31M ONE Stop: 06/28/25 01:52 Last Infusion: 06/28/25 03:06 Dose: Infused Documented By: juan Admin: 06/28/25 02:12 Dose: 999 mls/hr Documented By: juan Insulin Aspart (Insulin Aspart Per Unit Charge) 0 units SC NOW ONE Stop: 06/28/25 04:01 Last Admin: 06/28/25 04:49 Dose: Not Given Documented By: NOLBERTO Insulin Glargine (Lantus Per Unit Charge) 20 units SC NOW ONE Stop: 06/28/25 04:01 Last Admin: 06/28/25 04:56 Dose: 20 units Documented By: NOLBERTO Co-signed By: WIN Imaging Data Radiologist's Impression: Chest X-Ray 06/27/25 22:54 Exam(s): XR CXR 1 VIEW EXAM: XR Chest, 1 View CLINICAL HISTORY: Reason for exam: weakness. TECHNIQUE: Frontal view of the chest. COMPARISON: Prior chest x-ray from June 02, 2022. FINDINGS: Eventration of the right hemidiaphragm. Lungs: Moderate to heavy peribronchial thickening of the central bronchi. No consolidation. Low lung volumes limit evaluation of the lung bases. Pleural space: Unremarkable. No pneumothorax. Heart: Unremarkable. No cardiomegaly. Mediastinum: Unremarkable. Normal mediastinal contour. Bones/joints: Unremarkable. No acute fracture. IMPRESSION: Bronchitis, which may be of infectious or inflammatory etiologies. No consolidation or pleural effusion. Electronically signed by: Tessa Gannon MD 06/28/25 01:[address] 06/27/25 23:39 EXAM: CT head/brain wo con CLINICAL HISTORY: altered ms TECHNIQUE: Multiple axial images are obtained from the skull base to the vertex without contrast. CT scan was performed according to ALARA (as low as reasonably achievable). 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 FINDINGS: There is cerebral atrophy. No evidence of space occupying lesion, hemorrhage, edema, mass effect, midline shift, extra axial collection, or hydrocephalus is noted. Basal cisterns are symmetric and normal in size and configuration. There are scattered periventricular hypodensities as can be seen with chronic microvascular ischemic changes. The schofield-white matter differentiation is preserved. Visualized paranasal sinuses and mastoid air cells are well aerated. Orbital contents are within normal limits. Bony structures are intact. IMPRESSION: 1. No evidence of acute intracranial abnormality is demonstrated. 2. Chronic microvascular ischemic changes.-stable. 3. Cerebral atrophy.-stable. Electronically signed by Ash Case 06-28-2025 12:36 AM Discharge Plan Visit Data Chief Complaint: Dizziness Stated Complaint: DECREASED APPETITE, DIZZINESS ED Provider: Isamar Gillis Discharge Problem: Dehydration, Acute alteration in mental status, Ambulatory dysfunction Patient Disposition: Admitted As Inpatient Condition: Serious Discharge Instructions Interventions: ED Discharge Assessment Last Done: 06/28/25 03:33
[2025-06-28] MEDS: INSULIN ASPART PER UNIT CHARGE SC SCH (08:41)
[2025-06-28] MEDS: CHOLECALCIFEROL 25 MCG (1000 UNITS) TAB PO SCH (08:42)
[2025-06-28] MEDS: LEVOTHYROXINE SODIUM 88 MCG TABLET PO SCH (08:42)
[2025-06-28] MEDS: ATENOLOL 50 MG TABLET PO SCH (08:43)
[2025-06-28] MEDS: ASPIRIN 81 MG ECTAB PO SCH (08:43)
[2025-06-28] MEDS ORDERED: LANTUS PER UNIT CHARGE SQ SCH (09:00)
--- NOTE | 2025-06-28 11:52 | Pharmacy Report ---
Pharmacy Glycemic Short Note 2 - Date of Service June 28, 2025 - Glycemic Short BSG Results (Last 24 hours): 06/27/25 06/28/25 06/28/25 21:23 04:46 07:30 Glucose 191 H POC Glucose 118 H 83 06/28/25 11:23 Glucose POC Glucose 77 OUTPATIENT ANTIDIABETIC REGIMEN: * Ozempic 0.25 mg * Novolog pump - settings taken from outpatient DM note from 05/2025 * basal ~35 units/day * bolus 0000 1:5 1700 1:4 * tdd ~58 ASSESSMENT: * 80 year old admitted with dizziness/confusion/decreased appetite. Pharmacy consulted for glycemic management. Patient typically on insulin pump, however removed this morning as PO intake has been poor and concerns for low blood sugars. Given Lantus 20 units x 1 this AM. Novolog SSI started. BSGs trending down lower at lunch time check will plan to loosen parameters. PLAN FOR INPATIENT GLYCEMIC CONTROL: * Hold outpatient oral diabetes medications * Basal insulin * Lantus 20 units x 1 this AM * Reevaluate basal tomorrow AM * Bolus insulin * NovoLog per scale ACHS or Q6hrs while NPO * Goal Range: Low 120 mg/dL - High 160 mg/dL * Correction Factor: 30 mg/dL/unit * Nutritional / Prandial insulin per carb ratio of 1 unit per 12 grams CHO consumed
--- NOTE | 2025-06-28 16:44 | Communication Note ---
Date of Service: June 28, 2025 Patient was seen and examined but admitted the same day therefore I will not be billing for this encounter. Improved confusion likely secondary to urinary retention as per report this improvement occurred after vinson catheter insertion. Prior TURP per urology notes in 2020. Will need to follow up with urology on discharge. Patient on silodosin at home already, will switch to tamsulosin while here. Anti-hypertensives held on admission, will continue off these and add back in ass needed if his BP starts increasing. Discussed care with patient and his (over the phone). Main concern is his mobility as in personal care and his thinks he may need acute rehab prior to coming home. PT/OT ordered. Not yet been out of bed - discussed with RN to facilitate transfer to chair.
[2025-06-28] MEDS: TAMSULOSIN HCL 0.4 MG CAP PO SCH (20:27)
[2025-06-28] MEDS: ENOXAPARIN INJ 40 MG/0.4 ML SYR SQ SCH (20:27)
[2025-06-28] MEDS: ROSUVASTATIN CALCIUM 20 MG TAB PO SCH (20:27)
[2025-06-28] MEDS: GABAPENTIN 100 MG CAP PO SCH (20:27)
[2025-06-28] MEDS: MELATONIN 3 MG TAB PO PRN (23:50)
[2025-06-29 03:49] VITALS: O2SAT 92
[2025-06-29 07:32] LABS: Hematocrit (blood only) 41.6 % (42.0-52.0); Hemoglobin 13.9 g/dL (14.0-18.0); Immature Granulocytes # (auto) 0.01 K/uL (0.01-0.20); Immature Granulocytes % (auto) 0.2 %; Mean Corpuscular Hemoglobin 29.6 pg (25.0-34.0); Mean Corpuscular Volume 88.7 fL (80.0-100.0); Platelet Count 160 K/uL (130-400); RDW Standard Deviation 42.7 fL (36.4-46.3); Red Blood Count 4.69 M/uL (4.70-6.10); White Blood Count 5.76 K/ul (4.8-10.8)
[2025-06-29 07:49] LABS: Alanine Aminotransferase 17.0 U/L (7-52); Albumin Globulin Ratio 1.4 (0.9-2); Albumin Level 3.2 gm/dl (3.4-5.0); Alkaline Phosphatase 55.0 U/L (34-104); Anion Gap 6.0 (3-11); Bilirubin,Total 0.5 mg/dl (0.2-1.0); Blood Urea Nitrogen 17.0 mg/dl (6-23); Calcium 8.2 mg/dl (8.6-10.3); Carbon Dioxide 28.0 mmol/L (21-32); Chloride 102.0 mmol/L (98-107); Creatinine Clr Calc Pharmacy 84.1 ml/min; Globulin 2.3 gm/dl (2.5-4.0); Glucose 131.0 mg/dl (70-99(Fasting)); Magnesium 1.9 mg/dl (1.7-2.4); Potassium 3.9 mmol/L (3.5-5.1); Sodium 136.0 mmol/L (136-145); Total Protein 5.5 gm/dl (6.0-8.3)
[2025-06-29 08:04] LABS: Thyroid Stimulating Hormone 0.913 uIu/ml (0.300-4.500)
[2025-06-29 11:04] VITALS: BP 133/71; RESP 18; TEMP 97.9
[2025-06-29] MEDS: LANTUS PER UNIT CHARGE SC SCH (13:11)
--- NOTE | 2025-06-29 15:05 | Discharge Summary ---
Discharge Summary Date of Service June 29, 2025 Principal Dx & Hospital Course #1 = Principal Diagnosis (1) Acute metabolic encephalopathy: (2) Dehydration, moderate: (3) Urinary incontinence: (4) Sacral neurostimulator in situ: Plan Wisam Nunes is an 80 year old male admitted to [facility] from June 28 - 2024 due to acute confusion and dizziness. He was diagnosed with urine retention, dehydration and hypotension. He was treated with vinson catheter and should follow up with your urology for management of urine retention. He was started on finasteride although this can take many months to work he is already taking silodosin. Acute encephalopathy resolved with vinson catheter insertion therefore suspect the urine retention was causing this. He was also noted to have a normal blood pressure off his usual eplerenone, losartan and amlodipine. Recommend stopping the amlodipine and eplerenone. Recommend he follows up with his primary care provider to discuss restarting losartan but hold this until then. He was seen by physicial therapy and recommend discharge back to [facility] with ongoing physical therapy there for ongoing ambulatory dysfunction. Notes For Next Care Provider Follow up PCP for routine BP management Medication Changes From Visit Eplerenone and amlodipine stopped for hypotension Losartan held for hypotension Finasteride started for urine retention and BPH Admission HPI Per Admitting Provider The patient is an 80-year-old male with past medical history including diabetic retinopathy, diabetes type 2, hypothyroidism, hypoglycemia unawareness, overactive bladder, urinary incontinence, diabetic peripheral neuropathy, GERD, hypothyroidism, presence of insulin pump, sleep apnea, hypertension, and history of TIA. He was brought to the emergency department by EMS from [facility] where he lives, due to noticing dizziness at 1800 hrs. this evening, and slight confusion. She reports he had a decreased appetite over the past few weeks. He does walk around with a walker. He has a sacral neurostimulator due to overactive bladder, and his reports that he gets no sleep because he has to urinate every 15 minutes. He is reluctant to drink fluids, because he has to urinate so frequently. And presents as moderately dehydrated with associated encephalopathy. Discharge Exam Constitutional WD/WN, vitals as above Respiratory normal respiratory effort, lungs clear to auscultation Cardiovascular RRR, no murmur, no edema Gastrointestinal (Abdomen) normal bowel sounds, soft, nontender, no hepatosplenomegaly Discharge Plan Discharge Items Patient Disposition: Home - Self-Care Reason For Visit: DEHYDRATION, ENCEPHALOPATHY,BLADDER SPASMS. Discharge Diagnosis: Urine retention Dehydration Low blood pressure Condition on Discharge: Fair Activity: Resume your previous activity Non-emergency contact: Primary Care Provider Call non-emergency contact if: you have any medication questions and your symptoms worsen Follow-up/Referrals: Randee Solorzano [Primary Care Provider] - Sky Hernandez MD [Physician] - (Follow up urine retention) Addtl Attending Provider Instructions: You were admitted to [facility] from June 28 - 2024 due to acute confusion and dizziness. You were diagnosed with urine retention and low blood pressure. You were treated with vinson catheter and should follow up with your urology for management of your urine retention. You were started on finasteride although this can take many months to work so there is no urgency to pick this up over the holiday period if you are unable to. Please see the included information sheet for side effects of this medication. You were also noted to have a normal blood pressure off your usual eplerenone, losartan and amlodipine. Recommend stopping the amlodipine and eplerenone and restarting losartan only on advice of your primary care provider. Please follow up with your primary care provider for ongoing management of your blood pressure. Please continue physical therapy at [facility] for your ongoing ambulatory dysfunction. Pending Studies at Discharge: No Stand-Alone Forms: My [facility], Smoking Cessation Medications and DC Order Prescriptions: New finasteride 5 mg tablet 5 mg PO DAILY Qty: 30 0RF Continued insulin aspart U-100 [Novolog U-100 Insulin aspart] 100 unit/mL solution 150 unit continuous subcutaneous infusion DAILY MDD 150 units Qty: 140 3RF Rx Instructions: via insulin pump aspirin 81 mg tablet,delayed release (DR/EC) 81 mg PO QAM atenolol 50 mg tablet 50 mg PO HS gabapentin 400 mg capsule 400 mg PO HS duloxetine 30 mg capsule,delayed release(DR/EC) 30 mg PO HS Rx Instructions: TAKE WITH 60MG FOR TOTAL OF 90MG duloxetine 60 mg capsule, delayed rel sprinkle 60 mg PO HS Rx Instructions: TAKE WITH 30MH FOR TOTAL DOSE OF 90MG cholecalciferol (vitamin D3) 50 mcg (2,000 unit) capsule 50 mcg PO HS polyethylene glycol 3350 [Miralax] 17 gram powder in packet 17 g PO DAILY PRN (Reason: Constipation) omega-3 fatty acids-fish oil 340-1,000 mg capsule 1 cap PO DAILY rosuvastatin 20 mg Tablet 20 mg PO HS levothyroxine 88 mcg tablet 88 mcg PO QAM bupropion HCl 300 mg tablet extended release 24 hr 300 mg PO QAM ketoconazole 2 % Shampoo 1 ea TOPICAL BID PRN (Reason: DERMATITIS) Rx Instructions: APPY TO AFFECTED AREAS NEEDED AND TO WASH FACE FOR 1 MIN RINSE WELL triamcinolone acetonide 0.1 % Cream 1 applic TOPICAL DIRECTED PRN (Reason: Rash) Rx Instructions: APPLY TO AFFECTED AREA NEEDED FOR RASH fluticasone propionate [Flonase Allergy Relief] 50 mcg/actuation [place],Suspension 1 spray INTRANASAL BID Rx Instructions: administer into each nostril silodosin 8 mg capsule 8 mg PO HS Metamucil 3.4 gram/5.4 gram Powder 1 tsp PO BID Rx Instructions: TAKE EVERY 2-3 DAYS;mix into at least 4 oz water or juice before administering pzxtmxkwrzdo-lak-hwex-FA-vit K 18 mg iron-400 mcg-25 mcg Tablet 1 tab PO DAILY Held losartan 100 mg tablet 100 mg PO QAM Qty: 14 Hold Instructions: Resume on 07/06/25. Hold until follow up with your primary care physician Discontinued eplerenone 25 mg tablet 25 mg PO QAM amlodipine 2.5 mg tablet 7.5 mg PO DAILY Rx Instructions: TAKE WITH 5MG FOR TOTAL DOSE OF 7.5MG amlodipine 5 mg tablet 7.5 mg PO DAILY Rx Instructions: TAKE WITH 2.5MG FOR A TOTAL ON 7.5MG Discharge Orders: Discharge Order (Routine); Ordered 06/29/25 Ordered By: Caio Hopson/Other Patient Handouts: Finasteride Oral Tablet, Managing Type 2 Diabetes Admission Data Admit Date/Time: 06/28/25 02:25 Attending Provider: Caio Hanley Admit Provider: Elroy Maravilla Primary Care Provider: Randee Solorzano Other Providers: Elroy Maravilla Other Interventions: Discharge Summary Assessment (RN) Last Done: 06/29/25 15:27 Hospital Stay Data Consultations 06/28/25 01:21 ED Decision to Admit Stat Diagnostic Imagining Performed 06/27/25 23:39 CT head/brain wo con Stat Pending Results Patient Have Any Pending Studies at Discharge: No Discharge Instructions Given to Patient (Per Discharging Provider) You were admitted to [facility] from June 28 - 2024 due to acute confusion and dizziness. You were diagnosed with urine retention and low blood pressure. You were treated with vinson catheter and should follow up with your urology for management of your urine retention. You were started on finasteride although this can take many months to work so there is no urgency to pick this up over the holiday period if you are unable to. Please see the included information sheet for side effects of this medication. You were also noted to have a normal blood pressure off your usual eplerenone, losartan and amlodipine. Recommend stopping the amlodipine and eplerenone and restarting losartan only on advice of your primary care provider. Please follow up with your primary care provider for ongoing management of your blood pressure. Please continue physical therapy at [facility] for your ongoing ambulatory dysfunction. Total Time Total Time Spent Total Time Spent (In Minutes): 50 Coding Level of Care Code 64051 INP/OBS DISCH >30 MIN Diagnoses Acute metabolic encephalopathy G93.41 Dehydration, moderate E86.0 Urinary incontinence R32 Sacral neurostimulator in situ Z96.82
[2025-06-29 15:28] VITALS: PULSE 73
--- NOTE | 2025-06-30 13:53 | Electrocardiogram Report ---
Test Reason : Blood Pressure : */* mmHG Vent. Rate : 109 BPM Atrial Rate : 109 BPM P-R Int : 176 ms QRS Dur : 86 ms QT Int : 328 ms P-R-T Axes : 55 25 65 degrees QTcB Int : 441 ms Sinus tachycardia Possible Left atrial enlargement Nonspecific ST and T wave abnormality Abnormal ECG When compared with ECG of 30-Jan-2023 09:59, Vent. rate has increased by [address] now depressed in Inferior leads ST now depressed in Anterolateral leads Confirmed by Mitesh Mendez ([id number]) on 06/30/2025 1:53:22 PM Referred By: Randee Solorzano Confirmed By: Mitesh Mendez
== END 2025-06-29 16:03 | disposition home or self-care (01) | DRG 72 ==
LOC: SUATTDRO → ED 21:20 → SUATTDRO 06-28 02:25 → EDINP 06-28 02:25 → 2N 06-28 03:33